=== PATIENT | male | born 1945 | race Caucasian/White ===

== ENCOUNTER 2021-03-14 10:55 | Emergency (ER) | payer MEDICARE, OTHER ==
[~2021-03-14] VITALS: Ht 177.8 cm; Wt 78.1 kg
[2021-03-14 11:00] VITALS: BP 120/79
--- NOTE | 2021-03-14 11:10 | ED Lower Extremity ---
General Chief Complaint: Lower Extremity Stated Complaint: RT LEG INJ Source: patient History of Present Illness Date Seen by Provider: Mar 14, 2021 Time Seen by Provider: 11:05 Initial Comments 75-year-old male presents with swelling and erythema of his left lower leg. Patient reports that he injured it about week 2 ago. That he started out with just a little red spot. That the red spot has grown become more inflamed and warm to the touch. He does not remember exactly how he injured it. He does not believe there is any puncture wound or disruption of the skin. He has no fever or chills. He has no posterior calf pain or tenderness. Allergies and Home Medications Allergies Coded Allergies: codeine (Verified Allergy, Unknown, 03/14/21) Patient Home Medication List Home Medication List Reviewed: Yes Review of Systems Constitutional: No chills, No fever Respiratory: no symptoms reported Cardiovascular: no symptoms reported Gastrointestinal: no symptoms reported Genitourinary: no symptoms reported Musculoskeletal: see HPI Skin: see HPI Psychiatric/Neurological: No Symptoms Reported Physical Exam Vital Signs Capillary Refill : Height, Weight, BMI Height: '" Weight: lbs. oz. kg; BMI Method: General Appearance: no apparent distress Neck: full range of motion, supple Cardiovascular: normal peripheral pulses, regular rate, rhythm Respiratory: lungs clear, normal breath sounds Gastrointestinal: non tender, soft Hips: bilateral hip non-tender Legs: left leg soft tissue tenderness (Left lower leg), left leg swelling (Left lower leg) Knees: bilateral knee non-tender Neurologic/Tendon: normal sensation Neurologic/Psychiatric: alert, normal mood/affect, oriented x 3 Skin: other (Cellulitis with erythema warmth and tenderness left lower extremity starts just distal to knee on the anterior down to the ankle.) Progress/Results/Core Measures Results/Orders My Orders Orders - ANGELIKA PEDRO DO Ceftriaxone (Rocephin) (03/14/21 11:15) Lidocaine 1% Inj 20 Ml (Xylocaine 1% Inj (03/14/21 11:15) Progress Progress Note : Progress Note Patient with what appears to be cellulitis of left lower extremity. Patient does not have any posterior calf pain and the cellulitis happened following unknown injury and has been spreading. At this time I do not feel he needs ultrasound for a blood clot. We will give him a shot of Rocephin in the ER and prescribed some Keflex. He is from [facility] and returning in the next day to 2 and recommend he follow-up with his primary care provider soon as he gets home for recheck of today's symptoms Departure Impression Primary Impression: Cellulitis of left lower leg Disposition: HOME, SELF-CARE Condition: Stable Departure-Patient Inst. Referrals: NO,LOCAL PHYSICIAN (PCP/Family) Primary Care Physician Patient Instructions: Cellulitis (Skin Infection), Adult ED Add. Discharge Instructions: Follow-up with your primary care provider soon as you get home for recheck of today's symptoms All discharge instructions reviewed with patient and/or family. Voiced understanding. Scripts Cephalexin (Cephalexin) 500 Mg Tablet 500 MG PO QID, #20 TAB 0 Refills Prov: ANGELIKA PEDRO DO 03/14/21 ANGELIKA PEDRO DO Mar 14, 2021 11:10
[2021-03-14] MEDS ORDERED: cefTRIAXone 1,000 MG VIAL IM ONE (11:15)
[2021-03-14] MEDS ORDERED: LIDOCAINE 1% INJ 20 ML 20 ML VIAL INJ ONE (11:15)
[2021-03-14] MEDS ORDERED: CEPH500T PO (11:29)
== END 2021-03-14 11:43 | disposition home or self-care (01) ==
LOC: ER FS 10:58
DX: L03.116 Cellulitis of left lower limb (principal)
CPT/HCPCS: 99284

== ENCOUNTER 2022-01-31 20:12 | Emergency (ER) | payer MEDICARE ==
[~2022-01-31 20:12] MED LIST: CEPH500T PO
[2022-01-31] MEDS ORDERED: CEPHALEXIN 250 MG (KEFLEX) CAP PO STA (20:21)
[2022-01-31] MEDS ORDERED: DOXYCYCLINE 100 MG (VIBRAMYCIN) TABLET PO STA (20:21)
[2022-01-31] MEDS ORDERED: CEPH500T PO (20:28)
[2022-01-31] MEDS ORDERED: DOXY100T2 PO (20:28)
--- NOTE | 2022-01-31 20:28 | ED Lower Extremity ---
General Chief Complaint: Lower Extremity Stated Complaint: RIGHT LEG PAIN Source: patient Exam Limitations: no limitations History of Present Illness Date Seen by Provider: January 31, 2022 Time Seen by Provider: 20:10 Initial Comments 76-year-old male with no pertinent past medical history coming in due to right leg redness, swelling, pain. He said he rolled out of bed last Monday, hit his leg against the ground causing pain. Has been walking but has been painful. Has been taking Tylenol which has been helping. Pain is moderate, constant, throbbing, worse with ambulation or touching it, better with rest. No fevers that he knows of. He has had that day as well, but did not pass out, has not had any headache, confusion, or any other concerns. Tetanus updated around 5 years ago. He is otherwise denying any other acute complaints. Allergies and Home Medications Allergies Coded Allergies: codeine (Verified Allergy, Unknown, 03/14/21) Patient Home Medication List Home Medication List Reviewed: Yes Cephalexin (Cephalexin) 500 Mg Tablet, 500 MG PO QID Prescribed by: ANGELIKA PEDRO on 03/14/21 1129 Cephalexin (Cephalexin) 500 Mg Tablet, 500 MG PO TID Prescribed by: ALBRETO FONG on 01/31/222027 Doxycycline Hyclate (Doxycycline Hyclate) 100 Mg Tablet, 100 MG PO BID Prescribed by: ALBERTO FONG on 01/31/222027 Review of Systems Constitutional: No chills, No fever EENTM: No blurred vision Respiratory: no symptoms reported Cardiovascular: no symptoms reported Gastrointestinal: no symptoms reported Genitourinary: no symptoms reported Musculoskeletal: muscle pain Skin: rash Psychiatric/Neurological: No Symptoms Reported All Other Systems Reviewed Negative Unless Noted: Yes Past Fljxgax-Iyeroi-Upghjn Hx Patient Social History Tobacco Use?: No Substance use?: No Alcohol Use?: No Past Medical History Surgeries: No Physical Exam Vital Signs Vital Signs - First Documented 01/31/22 20:15 Temp 36.9 Pulse 73 Resp 18 B/P (MAP) 163/93 (116) Pulse Ox 98 O2 Delivery Room Air Capillary Refill : Height, Weight, BMI Height: '" Weight: lbs. oz. kg; 24.00 BMI Method: General Appearance: WD/WN, no apparent distress HEENT: PERRL/EOMI, normal ENT inspection, pharynx normal, other (0.5 cm laceration to the right forehead which is essentially healed) Neck: non-tender, full range of motion, supple, normal inspection Cardiovascular: regular rate, rhythm, no edema, no murmur Respiratory: chest non-tender, lungs clear, normal breath sounds, no respiratory distress, no accessory muscle use Gastrointestinal: normal bowel sounds, non tender, soft; No distended, No guarding Back: normal inspection, no CVA tenderness, no vertebral tenderness Hips: bilateral hip non-tender, bilateral hip normal inspection, bilateral hip normal range of motion, bilateral hip no evidence of injury Legs: bilateral leg non-tender, bilateral leg normal inspection, bilateral leg normal range of motion, bilateral leg no evidence of injury Knees: bilateral knee non-tender, bilateral knee normal inspection, bilateral knee normal range of motion, bilateral knee no evidence of injury Ankles: left ankle non-tender, left ankle normal inspection, left ankle normal range of motion, left ankle no evidence of injury; right ankle bone tenderness (Right medial distal tibia), right ankle pain, right ankle soft tissue tenderness, right ankle swelling, right ankle other (Erythema spreading up the leg and down foot consistent with cellulitis, is warm to touch) Neurologic/Tendon: normal sensation, normal motor functions, normal tendon functions Neurologic/Psychiatric: no motor/sensory deficits, alert, normal mood/affect, oriented x 3 Skin: normal color, warm/dry Lymphatic: no adenopathy Progress/Results/Core Measures Results/Orders My Orders Orders - ALBERTO FONG MD Tibia Fibula 2 View Right (01/31/22 20:21) Doxycycline Hyclate Tablet (Vibramycin T (01/31/22 20:21) Cephalexin Capsule (Keflex Capsule) (01/31/22 20:21) Vital Signs/I&O 01/31/22 20:15 Temp 36.9 Pulse 73 Resp 18 B/P (MAP) 163/93 (116) Pulse Ox 98 O2 Delivery Room Air Progress Progress Note : Progress Note 76-year-old male with above history coming in delayed now almost 6 days after rolling out of his bed. Right leg is tender, and I suspect he broke the skin after falling and hitting the ground causing an avenue for infection. The redness has been worsening over the past couple of days. This consistent with cellulitis on my exam. The changes do not call the way around the leg, and he has no calf tenderness or swelling. It does seem more localized and not consistent with a DVT. I did do a [id number] ultrasound as well, and his popliteal vein is completely compressible. We will get an x-ray to rule out fracture. On my interpretation there is no fracture, he does have hardware going through his tibia into his foot which is intact. He was given doxycycline and Keflex here followed by prescription. In regards to hitting his head, he was almost a week ago, and he has no symptoms at all. The laceration on his forehead has near completely healed. He is up-to-date on tetanus. He has no spinal tenderness. He is neurovascularly intact with a GCS of 15 as well. I believe he is stable for discharge with outpatient follow-up. He was sent home with strict return precautions. Departure Impression Primary Impression: Cellulitis of right lower extremity Disposition: HOME, SELF-CARE Condition: Stable Departure-Patient Inst. Decision time for Depature: 20:45 Referrals: [facility],LOCAL PHYSICIAN (PCP) Primary Care Physician Patient Instructions: Cellulitis (Skin Infection), Adult (DC) Add. Discharge Instructions: You do appear to have a skin infection. You will be on 2 different antibiotics for the next 10 days. Take Tylenol as needed for pain. Follow-up with [facility] if you need a doctor. Scripts Cephalexin (Cephalexin) 500 Mg Tablet 500 MG PO TID for 10 Days, #30 TAB Prov: ALBERTO FONG MD 01/31/22 Doxycycline Hyclate (Doxycycline Hyclate) 100 Mg Tablet 100 MG PO BID for 10 Days, #20 TAB 0 Refills Prov: ALBERTO FONG MD 01/31/22 ALBERTO FONG MD January 31, 2022 20:28
[2022-01-31 20:39] VITALS: BP 163/93
--- NOTE | 2022-01-31 20:40 | Diagnostic Imaging Report ---
EXAMINATION: Right tibia and fibula radiographs EXAM DATE: 01/31/2022 8:36 PM COMPARISON: None available. HISTORY: Right leg pain after injury TECHNIQUE: 2 views FINDINGS: Likely surgical changes of the distal right fibula. Surgical changes from open reduction internal fixation of the distal tibia, talus and calcaneus.. There is fusion of the right ankle. No other acute fracture, dislocation, or destructive osseous process. The soft tissues are normal. IMPRESSION: 1. Surgical changes of the distal right tibia and fibula without acute osseous abnormality. Dictated by: Dictated on workstation # [id number]
== END 2022-01-31 20:40 | disposition home or self-care (01) ==
LOC: ER FS 20:12
DX: L03.115 Cellulitis of right lower limb (principal)
CPT/HCPCS: 73590

== ENCOUNTER → 2022-02-10 | Outpatient (CLI) | payer MEDICARE ==
[~2022-02-10] MED LIST changes: +DOXY100T2 PO
--- NOTE | 2022-02-10 18:01 | Diagnostic Imaging Report ---
INDICATION: Right leg cellulitis AP and lateral views of the right leg are obtained. 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 There has been resection of the distal right fibula. There is no bone destruction or periosteal reaction. Degenerative findings are seen at the right knee with chondrocalcinosis and mild marginal spurring. IMPRESSION: Stable chronic findings and fusion across the hindfoot as described. No acute abnormality is detected. Dictated by: Dictated on workstation # [id number]
== END ==
LOC: RAD FS 15:31
PROVIDERS: ATTEND Nurse Practitioner Family
DX: L03.115 Cellulitis of right lower limb (principal)
CPT/HCPCS: 73590

== ENCOUNTER → 2022-02-11 | Outpatient (CLI) | payer MEDICARE | LOC: WOUNDCARE 08:52 | PROVIDERS: ATTEND Family Medicine | DX: S80.811A Abrasion, right lower leg, initial encounter (principal); I89.0 Lymphedema, not elsewhere classified; I87.331 Chronic venous hypertension (idiopathic) with ulcer and inflammation of right lower extremity | CPT/HCPCS: 99213 ==

== ENCOUNTER → 2022-02-17 | Outpatient (CLI) | payer MEDICARE | LOC: WOUNDCARE 12:19 | PROVIDERS: ATTEND Family Medicine | DX: S80.811A Abrasion, right lower leg, initial encounter (principal); I89.0 Lymphedema, not elsewhere classified; I87.331 Chronic venous hypertension (idiopathic) with ulcer and inflammation of right lower extremity ==

== ENCOUNTER 2022-03-17 18:26 | Emergency (ER) | payer MEDICARE ==
[~2022-03-17] VITALS: Ht 177.8 cm; Wt 74.4 kg
[2022-03-17 18:34] VITALS: BP 148/84
[2022-03-17] MEDS ORDERED: AUGMENTIN 875 MG TAB (AMOXICILLIN/CLAVULANATE) PO STA (19:10)
[2022-03-17] MEDS ORDERED: AMOX1TAB12 PO (19:15)
[2022-03-17] MEDS ORDERED: TETANUS,DIPTH,PERTUSS P/F (BOOSTRIX) 0.5 ML VIAL IM ONE (19:15)
--- NOTE | 2022-03-17 19:16 | ED Integumentary General ---
General Chief Complaint: Bite-Animal/Human/Insect Stated Complaint: L HAND LAC/DOG BITE Nursing Triage Note: Pt reports he was "wresting" with his dog and the dogs tooth caught his left hand at 1700 today. Source: patient History of Present Illness Date Seen by Provider: Mar 17, 2022 Time Seen by Provider: 18:41 Initial Comments 76-year-old male presenting with cut to his left hand after playing with his dog. He had been trying to pull out a toy from the dog's mouth and accidentally caught a tooth on his hand. He had immediately washed it under cold water and try to get it to stop bleeding. He is unsure of his last tetanus booster. He recently was on Keflex and doxycycline for cellulitis of his leg. He denies any numbness or tingling. He has no significant pain. Bleeding is controlled at this time. Timing/Duration: just prior to arrival (About 1 hour prior to arrival) Severity: mild Location: hands (left) Possible Cause: other (dog bite) Associated Symptoms: No blisters, No change in skin texture, No edema, No fever, No flushing, No headache, No hives, No jaundice, No malaise, No nasal congestion, No numbness, No pallor, No paresthesia, No petechiae, No rash, No sore throat, No swelling/mass/lumps, No tingling Allergies and Home Medications Allergies Coded Allergies: codeine (Verified Allergy, Unknown, 03/14/21) Patient Home Medication List Home Medication List Reviewed: Yes Amoxicillin/Potassium Clav (Amox Tr-K Clv 875-125 mg Tab) 875 Mg-125 Mg Tablet, 1 EACH PO BID Prescribed by: CHA BASS on 03/17/221914 Discontinued Medications Cephalexin (Cephalexin) 500 Mg Tablet, 500 MG PO QID Prescribed by: ANGELIKA PEDRO on 03/14/21 1129 Last Action: Discontinued Cephalexin (Cephalexin) 500 Mg Tablet, 500 MG PO TID Prescribed by: ALBERTO FONG on 01/31/222027 Last Action: Discontinued Doxycycline Hyclate (Doxycycline Hyclate) 100 Mg Tablet, 100 MG PO BID Prescribed by: ALBERTO FONG on 01/31/222027 Last Action: Discontinued Review of Systems Review of Systems Constitutional: No chills, No fever EENTM: no symptoms reported Respiratory: no symptoms reported Cardiovascular: no symptoms reported Gastrointestinal: no symptoms reported Genitourinary: no symptoms reported Musculoskeletal: no symptoms reported Skin: see HPI Psychiatric/Neurological: No Symptoms Reported Past Hzjzbnu-Mcohpf-Vtuklx Hx Patient Social History Tobacco Use?: No Substance use?: No Past Medical History Surgeries: No Physical Exam Vital Signs Vital Signs - First Documented 03/17/22 18:34 Temp 36.6 Pulse 69 Resp 18 B/P (MAP) 148/84 (105) Pulse Ox 97 O2 Delivery Room Air Capillary Refill : Less Than 3 Seconds General Appearance: WD/WN, no apparent distress Cardiovascular: normal peripheral pulses Extremities: normal range of motion, non-tender, normal capillary refill, other (2.8 cm laceration to the subcutaneous tissue on left hand at base of thumb) 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 The bleeding was controlled. Wound edges were approximated using quarter-inch Steri-Strips x2. Mastisol was first applied to the skin to help with adhesive nature of the Steri-Strips. Counseled on management as well as follow-up and return precautions. Started on Augmentin for dog bite. Progress/Results/Core Measures Results/Orders My Orders Orders - CHA BASS MD Dipht,Pertuss(Acell),Tet Adult (Boostrix (03/17/22 19:15) Amoxicillin/Clavulanate Tablet (Augmenti (03/17/22 19:10) Vital Signs/I&O 03/17/22 18:34 Temp 36.6 Pulse 69 Resp 18 B/P (MAP) 148/84 (105) Pulse Ox 97 O2 Delivery Room Air Blood Pressure Mean: 105 Progress Progress Note : Progress Note Cleaned wound with chlorhexidine scrub soap and sterile water. Bleeding is controlled. We will approximate wound edges with Steri-Strips as it was a dog bite and the wound is not gaping open where she would have to have stitches. Counseled on management and treatment. Started on Augmentin tonight and continue with prescription from the pharmacy tomorrow. Counseled on return precautions of worsening signs of infection. Since he was unsure of his last tetanus booster an update was given here for DTaP Departure Impression Primary Impression: Laceration of left hand without foreign body Qualified Codes: S61.412A - Laceration without foreign body of left hand, initial encounter Additional Impression: Open wound of left hand due to dog bite Disposition: HOME, SELF-CARE Condition: Stable Departure-Patient Inst. Decision time for Depature: 19:12 Referrals: EARLENE CHIANG APRN (PCP) Primary Care Physician [facility] (Family) Primary Care Physician Patient Instructions: Animal Bites ED, Laceration Repair With Glue ED Add. Discharge Instructions: Keep wound clean and dry for the first 12 to 24 hours. After that you may wash it like normal but do not soak it. Take the full course of antibiotics to help treat for possible infection from the bite. If you have redness streaking up your hand and arm, fever over 101 Fahrenheit, pus draining from the wound this would all be reasons to come back or be seen again as you may need IV antibiotics. All discharge instructions reviewed with patient and/or family. Voiced understanding. Scripts Amoxicillin/Potassium Clav (Amox Tr-K Clv 875-125 mg Tab) 875 Mg-125 Mg Tablet 1 EACH PO BID for Dog Bite for 7 Days, #14 TAB 0 Refills Prov: CHA BASS MD 03/17/22 Images Extremities-Upper 1 - Laceration (2.8 cm laceration into subcutaneous tissue. Bleeding controlled and no foreign bodies on wound exploration while cleaning) CHA BASS MD Mar 17, 2022 19:16
== END 2022-03-17 19:25 | disposition home or self-care (01) ==
LOC: EDUNIT# 18:26 → ER FS 18:28
DX: S61.052A Open bite of left thumb without damage to nail, initial encounter (principal); Z23 Encounter for immunization; W54.0XXA Bitten by dog, initial encounter
CPT/HCPCS: 90715

== ENCOUNTER 2022-10-13 05:36 | Outpatient (CLI) | payer MEDICARE ==
[~2022-10-13] VITALS: Ht 177.8 cm; Wt 75.3 kg
[~2022-10-13 05:36] MED LIST changes: +AMOX1TAB12 PO
[2022-10-17] MEDS ORDERED: DOXE10CA29 PO (11:15)
[2022-10-17] MEDS ORDERED: TMSL.4C PO (11:15)
[2022-10-17] MEDS ORDERED: SUMA100T3 PO (11:15)
[2022-10-17] MEDS ORDERED: MIRA50TA PO (11:15)
[2022-10-17] MEDS ORDERED: OXYB15TA19 PO (11:15)
[2022-10-17] MEDS ORDERED: OMEP40CA6 PO (11:15)
[2022-10-17] MEDS ORDERED: ESZO3TAB39 PO (11:15)
== END 2022-10-17 11:16 | disposition home or self-care (01) ==
LOC: PREOP 05:36
PROVIDERS: ATTEND Surgery
DX: Z01.818 Encounter for other preprocedural examination (principal)

== ENCOUNTER 2022-10-20 07:41 | Day surgery (SDC) | payer MEDICARE ==
[~2022-10-20] VITALS: Ht 177.8 cm; Wt 75.3 kg
[2022-10-20] VITALS (8 sets, daily range): BP systolic 106–173; BP diastolic 55–90
[~2022-10-20 07:41] MED LIST changes: +DOXE10CA29 PO; +ESZO3TAB39 PO; +MIRA50TA PO; +OMEP40CA6 PO; +OXYB15TA19 PO; +SUMA100T3 PO; +TMSL.4C PO
--- NOTE | 2022-10-20 08:27 | Progress Note-Pre Operative ---
Pre-Operative Progress Note Date of Available H&P: Sep 26, 2022 Date H&P Reviewed: Oct 20, 2022 Time H&P Reviewed: 08:26 History & Physical: H&P Reviewed, Patient Examed, No changes noted Pre-Operative Diagnosis: left arm mass SILVINA AGUILLON DO Oct 20, 2022 08:27
[2022-10-20] MEDS: LACTATED RINGERS 1,000 ML IV PRN ×2 (08:43→10:45)
[2022-10-20] MEDS ORDERED: ceFAZolin INJECTION 2,000 MG in NS (IVPB) 50 ML IV ONE (08:45)
[2022-10-20] MEDS ORDERED: BUP/EPI 0.5% 1:200,000 (SENSORCAINE) 30 ML VIAL ONE (08:46)
[2022-10-20] MEDS ORDERED: proPOfol 200 MG/20 ML (DIPRIVAN) VIAL IV ONE (09:13)
[2022-10-20] MEDS ORDERED: fentaNYL INJ 100 MCG/2 ML AMP ONE (09:13)
[2022-10-20] MEDS ORDERED: ONDANSETRON 4 MG/2 ML (SDV) Z0FRAN ONE (10:47)
[2022-10-20] MEDS ORDERED: SEVOFLURANE (ULTANE) 15 ML INHAL SOLN ONE (10:47)
--- NOTE | 2022-10-20 10:58 | Anesthesia-General Post-Op ---
General Patient Condition Mental Status/LOC: Same as Preop Cardiovascular: Satisfactory Nausea/Vomiting: Absent Respiratory: Satisfactory Pain: Controlled Complications: Absent Post Op Complications Complications None Follow Up Care/Instructions Patient Instructions None needed. Anesthesia/Patient Condition Patient Condition Patient is doing well, no complaints, stable vital signs, no apparent adverse anesthesia problems. No complications reported per nursing. KAREL NIELSEN CRNA Oct 20, 2022 10:58
--- NOTE | 2022-10-20 10:59 | Progress Note-Post Operative ---
Post-Operative Progess Note Surgeon (s)/Lithographic Proofer Apprentice (s) Surgeon SILVINA AGUILLON DO Lithographic Proofer Apprentice: NA Pre-Operative Diagnosis left arm mass Post-Operative Diagnosis same Procedure & Operative Findings Date of Procedure 10/20/22 Procedure Performed/Findings excision left arm mass 4.5x3x1.5cm Anesthesia Type gen Estimated Blood Loss Estimated blood loss (mL): minimal Specimens/Packing Specimens Removed left arm mass SILVINA AGUILLON DO Oct 20, 2022 10:58
[2022-10-20] MEDS ORDERED: fentaNYL INJ 100 MCG/2 ML AMP IVP ONE (11:00)
[2022-10-20] MEDS ORDERED: ONDANSETRON 4 MG/2 ML (SDV) Z0FRAN IVP PRN (11:00)
--- NOTE | 2022-10-20 11:02 | Discharge Inst-Simple/Standard ---
Discharge Inst-Standard Patient Instructions/Follow Up Plan of Care/Instructions/FU: 12-14 days Mathew (sutures) Activity as Tolerated: No Discharge Diet: Regular Diet Other Inst to Patient Follow up Appt: Make appointment for 12-14days. Instructions: No strenuous activity. May shower in 24 hours, no tub bath or soaking. Use incentive spirometer at home as directed. No Smoking Skin/Wound Care: Keep area clean and dry. Change dressing daily and as needed. After 48 hours can leave open to air if keeping clean and dry. Symptoms to Report: Appetite Changes, Extremity Discoloration, Numbness/Tingling, Swelling Increased, Bleeding Excessive, Eyesight Changes, Pain Increased, Urine Color Change, Constipation(Persistent), Fever over 101 degree F, Pain/Pressure in chest, Urinating Difficulty, Cough Up/Vomit Blood, Heart Beat Irreg/Pounding, Pain/Pressure in jaw, Vaginal Bleeding Increase, Cramps in feet or legs, Lightheadedness, Pain/Pressure in shoulder, Diarrhea(Persistent), Memory Changes Suddenly, Questions/Concerns, Weight gain consecutive days, Dizziness/Fainting, Nausea/Vomiting, Shortness of Breath, Weight gain over 2 pounds If questions or concerns contact your physician Or seek help at emergency department. SILVINA AGUILLON DO Oct 20, 2022 11:02
[2022-10-20] MEDS ORDERED: BUP/EPI 0.5% 1:200,000 (SENSORCAINE) 30 ML VIAL INJ ONE (11:32)
--- NOTE | 2022-10-20 21:48 | OPERATIVE REPORT ---
DATE OF SERVICE: 10/20/2022 PREOPERATIVE DIAGNOSIS: Left arm mass. POSTOPERATIVE DIAGNOSIS: Left arm mass. PROCEDURE: Excision of left arm mass, 4.5 x 3 x 1.5 cm. SURGEON: Sivlina Carmona DO ANESTHESIA: General. ESTIMATED BLOOD LOSS: Minimal. COMPLICATIONS: None. INDICATIONS: The patient is a 77-year-old male with mass on the left arm. He understands the risks and benefits of the procedure and wishes to proceed. Consent was signed and in the chart. DESCRIPTION OF PROCEDURE: The patient was taken to the operating suite where he was prepped and draped in sterile fashion. Timeout was performed. A #15 blade scalpel was used to make incision over the palpable mass down to the adherent scar tissue present. Both Metzenbaum and cautery dissection was used to dissect around the mass completely removing the mass in its entirety. Overall, dimensions as noted in the procedure. Irrigation was used and local anesthetic was infiltrated around the wound. The skin was then closed using 3-0 nylon in simple interrupted fashion. The area was washed and dried and sterile bandages were applied. The patient tolerated the procedure well without complications, taken to recovery room in stable condition. The mass was in the subcutaneous layer. Job ID: [id number] DocumentID: [id number] Dictated Date: 10/20/2022 17:17:45 Ball Machine Operator Date: 10/20/2022 21:46:00 Dictated By: SILVINA CARMONA DO
== END 2022-10-20 12:09 | disposition home or self-care (01) ==
LOC: SDC 07:41
PROVIDERS: ATTEND Surgery
DX: I72.8 Aneurysm of other specified arteries (principal); D18.09 Hemangioma of other sites
CPT/HCPCS: 87081